=== PATIENT | female | born 1930 | race Caucasian/White ===

== ENCOUNTER 2016-10-21 16:46 | Inpatient (IN) | payer OTHER, MEDICARE ==
[~2016-10-21] VITALS: Ht 167.6 cm; Wt 83.0 kg
[2016-10-21 17:02] LABS: HEMATOCRIT 39.5 % (36.0-46.0); MCH 30.4 PG (29.0-34.0); MCHC 33.9 G/DL (30.0-36.0); MCV 89.6 FL (83-99); MEAN PLAT.VOLUME 10.6 uM^3 (9.5-12.4); PLATELET COUNT 275 K/uL (156-360); RBC DIS.WIDTH-CV 13.3 % (11.8-14.6); RBC DIS.WIDTH-SD 42.5 % (39-53); RED BLOOD COUNT 4.41 M/uL (3.80-5.20); WHITE BLOOD COUNT 16.7 K/uL (4.1-10.2)
[2016-10-21 17:07] LABS: EOSINOPHIL (%) 0.2 % (0-5); IMMATURE GRANULOCYTE (%) 0.2 % (0.0-0.7); IMMATURE GRANULOCYTE COUNT 0.3 K/uL; LYMPHOCYTE COUNT 6.3 K/uL (1.0-2.8); MONOCYTE (%) 7.4 % (3-12); MONOCYTE COUNT 1.2 K/uL (0-0.8); NEUTROPHIL (%) 54.2 % (45-76); NEUTROPHIL COUNT 9.1 K/uL (1.8-6.4)
[2016-10-21 17:09] LABS: BASE EXCESS 3.7 mEq/L (-3 to +3); BICARBONATE 28.5 mEq/L (22-26); CARBOXY HGB 0.8 % (0-5); COMMENTS - BLOOD GASES A+C+; DEVICE NC; METHEMOGLOBIN 0.2 % (0-1.5); O2 FLOW 3 L/MIN; PCO2 43 mm Hg (35-45); PO2 118 mm Hg (80-100); SITE LR; pH 7.43 (7.35-7.45)
[2016-10-21 17:10] LABS: CHLORIDE 100 mEq/L (99-109); SODIUM 138 mEq/L (136-147)
[2016-10-21 17:11] LABS: MAGNESIUM 2.4 mg/dL (1.3-2.7)
[2016-10-21 17:12] LABS: GLUCOSE 136 mg/dL (70-99)
[2016-10-21 17:13] LABS: ANION GAP 14 MEQ/L (2-14)
[2016-10-21 17:14] LABS: TOTAL BILIRUBIN 0.6 mg/dL (0.0-1.0)
[2016-10-21 17:16] LABS: ALKALINE PHOSPHATASE 45 IU/L (3-129); GFR ESTIMATE (CALCULATED) 56 mL/min/
[2016-10-21 17:17] LABS: D-DIMER ELISA 1.38 mg/L FEU (< 0.57); UREA NITROGEN (BUN) 23 mg/dL (9-23)
[2016-10-21 17:21] LABS: TROP-I INTERPRETATION NEGATIVE; TROPONIN-I 0.02 ng/mL (0.0-0.30)
[2016-10-21 19:11] LABS: ADD MIUA? YES; BILIRUBIN NEGATIVE; BLOOD NEGATIVE; COLOR YELLOW ((YELLOW)); GLUCOSE (STRIP) NEGATIVE; KETONES 20; LEUKOCYTES NEGATIVE; NITRITE NEGATIVE; PROTEIN (STRIP) NEGATIVE; SPECIFIC GRAVITY 1.019 (1.000-1.030); UROBILINOGEN 0.2 MG/DL (0.2-1.0)
[2016-10-21 19:23] LABS: BACTERIA NONE SEEN /HPF; EPITHELIAL CELLS NONE SEEN /HPF; MUCUS TRACE /LPF; RED BLOOD CELLS 0-5 /HPF (0-5); UCUL ADDED? NO; WHITE BLOOD CELLS 0-5 /HPF (0-5)
[2016-10-21 19:24] LABS: CASTS NONE SEEN /LPF; CRYSTALS NONE SEEN
[2016-10-21 19:56] VITALS: BP 187/82
[2016-10-21 20:02] VITALS: BP 187/82
[2016-10-21] MEDS ORDERED: LOPRESSOR100 M1 PO (20:36)
[2016-10-21] MEDS ORDERED: LASIX40 MG PO (20:37)
[2016-10-21] MEDS ORDERED: KLOR-CON20 MEQ PO (20:37)
[2016-10-21] MEDS ORDERED: CARDIZEM CD,CA120 MG PO (20:37)
[2016-10-21] MEDS ORDERED: DYAZIDE, MA1 CAPSULE PO (20:38)
[2016-10-21] MEDS ORDERED: LIPITOR10 MG PO (20:38)
[2016-10-21] MEDS ORDERED: EFFEXOR37.5 MG PO (20:38)
[2016-10-21] MEDS ORDERED: LEVO-T100 MCG PO (20:39)
[2016-10-21] MEDS ORDERED: XANAX0.25 MG PO (20:39)
[2016-10-21] MEDS ORDERED: ALREX 0.2%100 DROP/5 BOTH EYES ×2 (20:40→20:41)
[2016-10-21] MEDS ORDERED: LOTEMAX3.5 GM BOTH EYES (20:40)
[2016-10-21 21:00] VITALS: BP 165/76
[2016-10-21 21:50] LABS: METH RESISTANT S AUREUS PCR NEGATIVE (NEGATIVE)
[2016-10-21 21:51] LABS: PROBE CHECK PASS; SPECIMEN PROCESSING CONTROL PASS
[2016-10-21 22:00] VITALS: BP 155/61
[2016-10-21 23:00] VITALS: BP 164/62
[2016-10-22] VITALS (14 sets, daily range): BP systolic 107–167; BP diastolic 57–78
[2016-10-22 02:55] LABS: TROP-I INTERPRETATION NEGATIVE; TROPONIN-I 0.03 ng/mL (0.0-0.30)
[2016-10-22 08:01] LABS: TROP-I INTERPRETATION NEGATIVE; TROPONIN-I 0.02 ng/mL (0.0-0.30)
[2016-10-23 04:00] VITALS: BP 163/73
[2016-10-23 07:51] VITALS: BP 149/71
[2016-10-23 12:00] VITALS: BP 136/76
[2016-10-23 15:51] VITALS: BP 149/79
[2016-10-23 20:05] VITALS: BP 145/79
[2016-10-23 23:55] VITALS: BP 175/80
[2016-10-24 04:15] VITALS: BP 198/94
[2016-10-24 05:11] VITALS: BP 167/68
[2016-10-24 07:57] VITALS: BP 142/78
[2016-10-24] MEDS ORDERED: AMLODIPINE BESY10 MG PO (09:17)
[2016-10-24 11:10] VITALS: BP 128/80
== END 2016-10-24 17:00 | disposition home or self-care (01) | DRG 308 ==
LOC: EME 16:46 → 4WEST 18:55 → 4EAST 18:55 → EDOF 18:55 → 4WEST 19:58 → 4EAST 10-22 21:16
PROVIDERS: Emergency Medicine; Internal Medicine Cardiovascular Disease; Surgery
DX: I49.5 Sick sinus syndrome (principal); I46.2 Cardiac arrest due to underlying cardiac condition; C91.10 Chronic lymphocytic leukemia of B-cell type not having achieved remission; I45.5 Other specified heart block; R55 Syncope and collapse; I70.0 Atherosclerosis of aorta; I44.4 Left anterior fascicular block; I10 Essential (primary) hypertension; E78.5 Hyperlipidemia, unspecified; E03.9 Hypothyroidism, unspecified
CPT/HCPCS: 36600; 71010; 71275; 80053; 81003; 82803; 83605; 83735; 83880; 84443; 84484; 85025; 85379; 87040; 87641; 93005; 99281; 99284; J0360; J0461; J7030